=== PATIENT | male | born 1995 | race Hispanic/Latino ===

== ENCOUNTER → 2020-03-03 09:14 | Outpatient (CLI) | payer OTHER, MEDICAID, SELFPAY ==
[2020-03-03] MEDS: COVID-19 VACC(MODERNA-1)/PF 100 MCG/0.5 ML VIAL IM (09:24)
== END ==
PROVIDERS: Visit Provider Internal Medicine
DX: Z23 Encounter for immunization (principal)
CPT/HCPCS: 0011A; 91301

== ENCOUNTER → 2020-03-30 08:02 | Outpatient (CLI) | payer OTHER, MEDICAID, SELFPAY ==
[2020-03-30] MEDS: COVID-19 VACC #2, MRNA(MOD) 100 MCG/0.5 ML VIAL IM (08:08)
== END ==
PROVIDERS: Visit Provider Internal Medicine
DX: Z23 Encounter for immunization (principal)
CPT/HCPCS: 0012A; 91301

== ENCOUNTER 2023-01-20 13:49 | Emergency (ER) | payer OTHER, SELFPAY ==
[2023-01-20 14:07] VITALS: BP 136/79; PULSE 68; RESP 16; TEMP 36.7; O2SAT 98; BMI 20.5
--- NOTE | 2023-01-20 14:08 | DI.RAD.S_ITS ---
PROCEDURE: XR CHEST 2V INDICATIONS: cough x 1 year TECHNIQUE: 2 views of the chest were acquired. COMPARISON: None. FINDINGS: Surgical changes and devices: None. Lungs and pleura: Lungs are clear. No pleural effusions or pneumothorax. Mediastinum: Mediastinal contours are normal. Heart size is normal. Bones and chest wall: No suspicious bony abnormalities. Soft tissues appear unremarkable. IMPRESSION: No acute cardiopulmonary abnormality is seen. Dictated by: Morris Castellano M.D. on 01/20/2023 at 15:00 Approved by: Morris Castellano M.D. on 01/20/2023 at 15:01
--- NOTE | 2023-01-20 14:51 | ED.CHESTPAIN ---
HPI - Chest Pain <Brianda Stapleton PA-C - Last Filed: 01/20/23 19:17> General Chief Complaint: Chest Pain Stated Complaint: chest pain Time Seen by Provider: 01/20/23 14:08 Source: patient Mode of arrival: Ambulatory Limitations: no limitations History of Present Illness HPI narrative: 27-year-old male who presents for evaluation of chest pain and cough. Had abrupt onset of pain in the middle of his chest around his sternum last night after coughing fit. He says the pain is exacerbated by twisting movements. It is better at rest. He has not had any URI symptoms but does note that he is had a chronic low-level cough for about a year. Last night he did not experience any vomiting, no fever, no abdominal pain. He does not report any new medications or exposures. He says he has some mild allergies to though he has been around his girlfriend's CT for over a year. He does say he has occasional heartburn after spicy food, but not on a daily basis. He is seen his regular provider for the cough but says he was not given any particular advice. He denies back pain, neck pain arm pain, abdominal pain, ear pain or throat pain. Related Data Previous Rx's Medication Instructions Recorded omeprazole 10 mg capsule,delayed 10 mg PO DAILY #30 caps 01/20/23 release Allergies Allergy/AdvReac Type Severity Reaction Status Date / Time amoxicillin Allergy Verified 01/20/23 14:07 Review of Systems <Brianda Stapleton PA-C - Last Filed: 01/20/23 19:17> Review of Systems ROS Unobtainable: All systems reviewed & are unremarkable except as noted in HPI and below Patient History <Brianda Stapleton PA-C - Last Filed: 01/20/23 19:17> Social History Smoking Status: Never smoker Smoking Status: Never smoker alcohol intake frequency: 0-2 drinks per day Substance Use Type: marijuana Exam <Brianda Stapleton PA-C - Last Filed: 01/20/23 19:17> Narrative Exam Narrative: GENERAL: 27 year old patient appears stated age. Well-developed, in no distress. HEAD: Atraumatic. Normocephalic. EYES: Pupils equal round and reactive. Extraocular motions intact. No scleral icterus. No injection or drainage. ENT: Nose without bleeding, purulent drainage. Throat without erythema, tonsillar hypertrophy or exudate. NECK: Trachea midline. Non tender, no LAD CARDIOVASCULAR: Regular rate and rhythm without murmurs, gallops, or rubs. RESPIRATORY: Clear to auscultation. Breath sounds equal bilaterally. No wheezes, rales, or rhonchi. GASTROINTESTINAL: Abdomen soft, non-tender, nondistended. No epigastric tenderness to palpation NEURO: AOx3. Initial Vital Signs Initial Vital Signs: Vital Signs Temperature 98.1 F 01/20/23 14:07 Pulse Rate 68 01/20/23 14:07 Respiratory Rate 16 01/20/23 14:07 Blood Pressure 136/79 01/20/23 14:07 Pulse Oximetry 98 01/20/23 14:07 Oxygen Delivery Method Room Air 01/20/23 14:07 <Nereyda Dong MD - Last Filed: 01/20/23 19:27> Initial Vital Signs Initial Vital Signs: Vital Signs Temperature 98.1 F 01/20/23 14:07 Pulse Rate 68 01/20/23 14:07 Respiratory Rate 16 01/20/23 14:07 Blood Pressure 136/79 01/20/23 14:07 Pulse Oximetry 98 01/20/23 14:07 Oxygen Delivery Method Room Air 01/20/23 14:07 Course <Brianda Stapleton PA-C - Last Filed: 01/20/23 19:17> Orders Ordered: ED Orders 01/20/23 14:08 CXR [XR chest 2V] Stat EKG-12 Lead Stat Vital Signs Vital signs: Vital Signs - 8 hr 01/20/23 14:07 Temperature 98.1 F Pulse Rate 68 Respiratory Rate 16 Blood Pressure 136/79 Pulse Oximetry 98 Oxygen Delivery Method Room Air <Nereyda Dong MD - Last Filed: 01/20/23 19:27> Orders Ordered: ED Orders 01/20/23 14:08 CXR [XR chest 2V] Stat EKG-12 Lead Stat Vital Signs Vital signs: Vital Signs - 8 hr 01/20/23 14:07 Temperature 98.1 F Pulse Rate 68 Respiratory Rate 16 Blood Pressure 136/79 Pulse Oximetry 98 Oxygen Delivery Method Room Air MDM - Chest Pain <Brianda Stapleton PA-C - Last Filed: 01/20/23 19:17> Imaging Data Chest x-ray: Radiologist's Impression: PROCEDURE: XR CHEST 2V INDICATIONS: cough x 1 year TECHNIQUE: 2 views of the chest were acquired. COMPARISON: None. FINDINGS: Surgical changes and devices: None. Lungs and pleura: Lungs are clear. No pleural effusions or pneumothorax. Mediastinum: Mediastinal contours are normal. Heart size is normal. Bones and chest wall: No suspicious bony abnormalities. Soft tissues appear unremarkable. IMPRESSION: No acute cardiopulmonary abnormality is seen. Dictated by: Morris Castellano M.D. on 01/20/2023 at 15:00 Approved by: Morris Castellano M.D. on 01/20/2023 at 15:01 ECG Data Prior ECG tracings: not available for review Interpretation: Normal sinus rhythm with sinus arrhythmia otherwise normal ECG MDM Narrative Medical decision making narrative: Given the chronicity of this cough and chest pain that is exacerbated by movement with normal ECG and chest x-ray I am reassured this is not cardiac in nature. Nor pulmonary. However given patient's history I suspect chronic acid reflux is likely the cause of the cough which just recently caused what is likely costochondritis. Discharge Plan Departure Patient Disposition: Home Clinical Impression: Atypical chest pain Acid reflux Qualifiers: Esophagitis presence: esophagitis presence not specified Qualified Code(s): K21.9 - Gastro-esophageal reflux disease without esophagitis Instructions: DI for Gastroesophageal Reflux Disease (GERD) Activity Restrictions/Additional Instructions: Your chest x-ray and EKG are both normal. I suspect the pain is either/or strain of the muscles between your ribs due to the coughing but also could be acid reflux disease. It sounds as though you have experience with heartburn, and some new stresses that can increase the acid in your stomach. It is important to reduce the frequency of spicy foods, coffee, chocolate, acidic foods such as tomato based things. I went into start taking omeprazole 10 mg once a day and get into see a primary care provider within a month to discuss further treatment. It was a pleasure to take care of you today. Prescriptions: New omeprazole 10 mg capsule,delayed release(DR/EC) 10 mg PO DAILY Qty: 30 0RF Stand Alone Forms: Patient Portal/API ED Sign-out <Nereyda Dong MD - Last Filed: 01/20/23 19:27> Cosign ED Attending Cosignature Attestation: I was immediately available in the department for consultation throughout this patient's visit. Nereyda Dong MD
== END 2023-01-20 15:25 | disposition home or self-care (01) ==
PROVIDERS: Emergency Provider Physician Assistant
DX: R07.89 Other chest pain (principal); K21.9 Gastro-esophageal reflux disease without esophagitis
CPT/HCPCS: 71046; 93005; 99281; 99283